=== PATIENT | male | born 1970 | race Caucasian/White ===

== ENCOUNTER 2017-09-11 11:25 | Inpatient (IN) ==
[2017-09-21] MEDS ORDERED: DEXTROSE 50% 25 GM/50 ML VIAL IV PRN (08:40)
[2017-09-21] MEDS ORDERED: GLUCAGON 1 MG VIAL IM PRN (08:40)
[2017-09-25 12:23] LABS: Basophils % 0.3 % (0.0-0.8); Eosinophils # 0.1 10*3/uL (0.0-0.87); Eosinophils % 1.7 % (0.00-10.9); Hematocrit 41.9 VOL% (42.0-52.0); Hemoglobin 14.6 GM/DL (14.0-18.0); Immature Granulocytes % 0.2 %; Immature Granulocytes Absolute 0.01 #; Lymphocytes # 1.7 10*3/uL (1.4-4.0); Lymphocytes % 29.2 % (21.2-54.2); Mean Corpuscular HGB Conc 34.8 GM/DL (32-36); Mean Corpuscular Hemoglobin 29 PG (27-34); Mean Corpuscular Volume 83.8 FL (87-102); Mean Platelet Volume 10.1 FL (9.6-12.0); Monocytes # 0.5 10*3/uL (0.11-0.8); Monocytes % 9.4 % (1.7-12.7); Neutrophils # 3.4 10*3/uL (1.4-7.4); Neutrophils % 59.2 % (38.7-73.9); Platelet Count 185 T/CUMM (130-400); Red Cell Distribution Width 14.7 % (9.3-17.3); White Blood Count 5.8 T/CUMM (4-12)
[2017-09-25 13:06] LABS: Calcium 9.2 MG/DL (8.5-10.1); Total Protein 7.2 G/DL (6.4-8.3)
[2017-09-25 14:16] LABS: Allen Test Positive; Pt O2 Delivery Device Room Air
[2017-09-25] MEDS: CHLORHEXIDINE 4% SOLN 118 ML BOTTLE TOP SCH ×2 (15:23→21:42)
[2017-09-25 15:48] LABS: ABG Base Excess -0.7 MMOL/L (-2.5-2.5); ABG HCO3 23.8 MMOL/L (20-26); ABG Oxygen Saturation 96.6 % (95-100); ABG PCO2 37.9 MM HG (35-48); ABG PH 7.404 (7.35-7.45); ABG PO2 84.7 MM HG (80-95); ABG TCO2 20.3 MMOL/L (23-27)
[2017-09-25] MEDS ORDERED: traZODone 50 MG TABLET PO SCH (21:00)
[2017-09-25] MEDS: CHLORHEXIDINE 0.12% ORAL RINSE 60 ML BOTTLE SWISH/SPIT SCH (21:39)
[2017-09-26] MEDS ORDERED: PAPAVERINE 60 MG/2 ML VIAL ONE (05:24)
[2017-09-26] MEDS ORDERED: VANCOMYCIN 1,000 MG VIAL ONE (05:25)
[2017-09-26] MEDS ORDERED: FAMOTIDINE 20 MG TABLET PO ONE ×2 (05:44→05:46)
[2017-09-26] MEDS ORDERED: LORazepam 1 MG TABLET PO ONE ×2 (05:44→05:47)
[2017-09-26] MEDS ORDERED: CEFUROXIME INJ 1,500 MG in SYRINGE 1 EACH IV ONE (06:00)
[2017-09-26] MEDS ORDERED: EPINEPHrine 1 MG/ML VIAL ONE ×2 (06:38→10:35)
[2017-09-26] MEDS ORDERED: LIDOCAINE 2% 5 ML VIAL ONE (06:38)
[2017-09-26] MEDS ORDERED: VECURONIUM 10 MG VIAL IV ONE ×2 (06:38→10:35)
[2017-09-26] MEDS ORDERED: ETOMIDATE 20 MG/10 ML VIAL IV ONE (06:38)
[2017-09-26] MEDS ORDERED: AMINOPHYLLINE 500 MG/20 ML VIAL IV ONE (06:38)
[2017-09-26] MEDS ORDERED: MINERAL OIL/PETROLATUM OPH OINT 3.5 GM TUBE ONE (06:38)
[2017-09-26] MEDS ORDERED: CALCIUM CHLORIDE 1,000 MG/10 ML VIAL IV ONE ×2 (06:38→10:34)
[2017-09-26] MEDS ORDERED: GLYCOPYRROLATE 0.4 MG/2 ML VIAL ONE ×2 (06:38→10:36)
[2017-09-26] MEDS: CHLORHEXIDINE 4% SOLN 118 ML BOTTLE TOP SCH ×2 (06:39→09:35)
[2017-09-26] MEDS: CHLORHEXIDINE 0.12% ORAL RINSE 60 ML BOTTLE SWISH/SPIT SCH ×3 (06:39→21:43)
[2017-09-26 07:36] LABS: ABG Base Excess 0.1 MMOL/L (-2.5-2.5); ABG HCO3 24.5 MMOL/L (20-26); ABG Oxygen Saturation 99.9 % (95-100); ABG PCO2 41.2 MM HG (35-48); ABG PH 7.392 (7.35-7.45); ABG TCO2 21.7 MMOL/L (23-27); Glucose Heart Surgery 107 MG/DL (74-106); Hematocrit Heart Surgery 41.6 PERCENT (42-52); Hemoglobin Heart Surgery 13.6 G/DL (14.0-18.0); Ionized Calcium Arterial 1.21 MMOL/L (1.21-1.46); PCO2 Patient Temp Arterial 41.2 MMHG; PH Patient Temp Arterial 7.392; Patient Temperature 37 CELCIUS; Potassium Heart/CVR 4.2 MMOL/L (3.5-5.1); Sodium Heart/CVR 137 MMOL/L (135-145)
[2017-09-26] MEDS ORDERED: NITROPRUSSIDE 50 MG/2 ML VIAL ONE (07:44)
[2017-09-26] MEDS ORDERED: PHENYLEPHRINE DRIP 40 MG/250 ML PREMIX IV ONE (07:44)
[2017-09-26] MEDS ORDERED: CALCIUM CHLORIDE 1,000 MG/10 ML SYRINGE IV ONE (07:45)
[2017-09-26] MEDS ORDERED: POTASSIUM CHLORIDE RIDER 100 ML IV ONE (07:45)
[2017-09-26 08:00] LABS: Apearance,Urine CLEAR (Clear); Bacteria,Urine Occasional /HPF (Few); Bilirubin,Urine Negative (Negative); Blood, Urine Negative (Negative); Glucose,Urine (UA) Negative (Negative); Ketones,Urine Negative (Negative); Mucus,Urine Occasional /LPF (Occasional); Nitrite,Urine Negative (Negative); Protein,Urine Negative; RBC,Urine 5 /HPF (0-4); Urine Color Yellow (Yellow); Urine Specific Gravity 1.012 (1.001-1.035); Urine Urobilinogen < 2.0 EU/DL (0.2-1.0)
[2017-09-26] MEDS ORDERED: traMADol 50 MG TABLET PO PRN (08:00)
[2017-09-26] MEDS ORDERED: GLUCAGON 1 MG VIAL IM PRN (08:00)
[2017-09-26] MEDS ORDERED: SODIUM CHLORIDE 0.9% 1,000 ML IV SCH (08:00)
[2017-09-26] MEDS ORDERED: NITROGLYCERIN SL 0.4 MG TABLET SL PRN (08:00)
[2017-09-26] MEDS ORDERED: DEXTROSE 50% 25 GM/50 ML VIAL IV PRN ×3 (08:00→10:37)
[2017-09-26 08:52] LABS: Hematocrit Heart Surgery 28.2 PERCENT (42-52); Hemoglobin Heart Surgery 9.1 G/DL (14.0-18.0); PCO2 Patient Temp Venous 43.2 MM HG; PH Patient Temp Venous 7.386; PO2 Patient Temp Venous 50.1 MM HG; Potassium Heart/CVR 5.4 MMOL/L (3.5-5.1); VBG Base Excess 0.7 MEQ/L (0-4); VBG HCO3 24.9 MEQ/L (24-28); VBG Oxygen Saturation 83.8 %; VBG PCO2 43.2 MMHG (41-51); VBG PH 7.386; VBG PO2 50.1 MMHG (17-40)
[2017-09-26] MEDS ORDERED: THROMBIN TOPICAL (RECOMBINANT) 5,000 UNIT VIAL TOP ONE (09:17)
[2017-09-26 09:44] LABS: ABG Base Excess -1.2 MMOL/L (-2.5-2.5); ABG HCO3 23.3 MMOL/L (20-26); ABG Oxygen Saturation 93.2 % (95-100); ABG PCO2 40.1 MM HG (35-48); ABG PO2 69.1 MM HG (80-95); ABG TCO2 21.2 MMOL/L (23-27); Glucose Heart Surgery 178 MG/DL (74-106); Hematocrit Heart Surgery 35.8 PERCENT (42-52); Hemoglobin Heart Surgery 11.6 G/DL (14.0-18.0); Ionized Calcium Arterial 1.28 MMOL/L (1.21-1.46); PCO2 Patient Temp Arterial 40.1 MMHG; PO2 Patient Temp Arterial 69.1 MM HG; Patient Temperature 37 CELCIUS; Potassium Heart/CVR 4.7 MMOL/L (3.5-5.1); Sodium Heart/CVR 135 MMOL/L (135-145)
[2017-09-26] MEDS: SODIUM CHLORIDE 0.45% 1,000 ML IV SCH ×2 (10:20)
[2017-09-26] MEDS ORDERED: DEXTROSE 5% KCL 20 MEQ 20 MEQ/1,000 ML BAG IV ONE (10:26)
[2017-09-26] MEDS ORDERED: ALBUMIN 25% 25 GM/100 ML VIAL IV ONE (10:26)
[2017-09-26] MEDS ORDERED: SODIUM BICARBONATE 50 MEQ/50 ML SYRINGE IV ONE (10:26)
[2017-09-26] MEDS ORDERED: PROTAMINE SULFATE 250 MG/25 ML VIAL IV ONE (10:27)
[2017-09-26] MEDS ORDERED: methylPREDNISolone SOD SUC 1,000 MG/8 ML VIAL ONE (10:27)
[2017-09-26] MEDS ORDERED: HEPARIN 10,000 UNIT/10 ML VIAL ONE (10:27)
[2017-09-26] MEDS ORDERED: MAGNESIUM SULFATE 1 GM/2 ML VIAL ONE (10:27)
[2017-09-26] MEDS ORDERED: MANNITOL 12.5 GM/50 ML VIAL IV ONE (10:27)
[2017-09-26] MEDS ORDERED: FUROSEMIDE 20 MG/2 ML VIAL ONE (10:27)
[2017-09-26] MEDS ORDERED: SEVOFLURANE 1 UNIT/15 MINUTE INH ONE (10:34)
[2017-09-26] MEDS ORDERED: SUFentanil 50 MCG/ML AMP ONE (10:34)
[2017-09-26] MEDS ORDERED: MIDAZOLAM 10 MG/2 ML VIAL ONE (10:35)
[2017-09-26] MEDS ORDERED: SUFentanil 250 MCG/5 ML AMP ONE (10:35)
[2017-09-26] MEDS ORDERED: ETOMIDATE 40 MG/20 ML VIAL IV ONE (10:36)
[2017-09-26] MEDS ORDERED: LACTATED RINGERS 3,000 ML IV ONE (10:36)
[2017-09-26] MEDS ORDERED: SODIUM CHLORIDE 0.9% 1,000 ML IV ONE (10:36)
[2017-09-26] MEDS ORDERED: SODIUM CHLORIDE 0.9% 500 ML IV ONE (10:36)
[2017-09-26] MEDS ORDERED: AMINOCAPROIC ACID 5,000 MG/20 ML VIAL IV ONE (10:36)
[2017-09-26] MEDS ORDERED: NITROPRUSSIDE 100 MG in DEXTROSE 5% 250 ML IV PRN (10:37)
[2017-09-26] MEDS ORDERED: LACTATED RINGERS 250 ML IV PRN (10:37)
[2017-09-26] MEDS ORDERED: CALCIUM CHLORIDE 1,000 MG/10 ML SYRINGE IV PRN (10:37)
[2017-09-26] MEDS ORDERED: MAGNESIUM SULF RIDER 2 GM in PREMIX 1 EACH IV PRN (10:37)
[2017-09-26] MEDS ORDERED: PHENYLEPHRINE DRIP 40 MG/250 ML PREMIX IV PRN (10:37)
[2017-09-26] MEDS ORDERED: INSULIN REGULAR 100 UNIT/ML IV PRN (10:37)
[2017-09-26] MEDS ORDERED: MAGNESIUM SULF RIDER 4 GM in PREMIX 1 EACH IV PRN (10:37)
[2017-09-26] MEDS ORDERED: MIDAZOLAM 2 MG/2 ML VIAL IV PRN (10:37)
[2017-09-26] MEDS ORDERED: ONDANSETRON 4 MG/2 ML VIAL IV PRN (10:37)
[2017-09-26] MEDS ORDERED: MIDAZOLAM 10 MG/2 ML VIAL IV PRN (10:37)
[2017-09-26] MEDS ORDERED: INSULIN REGULAR 100 UNIT/ML IV ONE (10:37)
[2017-09-26] MEDS ORDERED: ACETAMINOPHEN 650 MG SUPP RECTAL PRN (10:37)
[2017-09-26] MEDS ORDERED: VECURONIUM 10 MG VIAL IV PRN ×2 (10:37)
[2017-09-26] MEDS ORDERED: POTASSIUM CHLORIDE RIDER 10 MEQ in PREMIX 1 EACH IV PRN (10:37)
[2017-09-26 10:46] LABS: ABG Base Excess 0.5 MMOL/L (-2.5-2.5); ABG HCO3 24.8 MMOL/L (20-26); ABG PCO2 35.2 MM HG (35-48); ABG PH 7.443 (7.35-7.45); ABG TCO2 21.3 MMOL/L (23-27); Glucose Heart Surgery 151 MG/DL (74-106); Hematocrit Heart Surgery 36.4 PERCENT (42-52); Hemoglobin Heart Surgery 11.8 G/DL (14.0-18.0); Potassium Heart/CVR 4.2 MMOL/L (3.5-5.1)
[2017-09-26] MEDS ORDERED: PROTAMINE SULFATE 50 MG/5 ML VIAL IV ONE (10:49)
[2017-09-26 10:51] LABS: Basophils % 0.2 % (0.0-0.8); Eosinophils % 0.7 % (0.00-10.9); Hematocrit 34.1 VOL% (42.0-52.0); Immature Granulocytes % 0.4 %; Immature Granulocytes Absolute 0.02 #; Lymphocytes % 17.4 % (21.2-54.2); Mean Corpuscular Hemoglobin 29 PG (27-34); Mean Corpuscular Volume 84.8 FL (87-102); Mean Platelet Volume 9.9 FL (9.6-12.0); Monocytes # 0.5 10*3/uL (0.11-0.8); Monocytes % 8.8 % (1.7-12.7); Neutrophils # 4.1 10*3/uL (1.4-7.4); Neutrophils % 72.5 % (38.7-73.9); Red Blood Count 4.02 MC/CUMM (3.8-5.5); Red Cell Distribution Width 14.4 % (9.3-17.3); White Blood Count 5.6 T/CUMM (4-12)
[2017-09-26 10:58] LABS: Hemoglobin 11.6 GM/DL (14.0-18.0); Platelet Count 213 T/CUMM (130-400)
[2017-09-26 11:00] LABS: INR 1.1
[2017-09-26] MEDS: POTASSIUM CHLORIDE RIDER 20 MEQ in PREMIX 1 EACH IV PRN ×4 (11:00→22:33)
[2017-09-26] MEDS: HYDROmorphone 2 MG/1 ML VIAL IV SCH ×2 (11:06→12:53)
[2017-09-26] MEDS: KETOROLAC 30 MG/1 ML VIAL IV SCH ×3 (11:08→22:29)
[2017-09-26 11:24] LABS: Albumin 3.5 G/DL (3.4-5.0); Calcium 8.3 MG/DL (8.5-10.1); Magnesium 2.4 MG/DL (1.8-2.4); Osmolality,Calculated 277.7 MOS/KG (273-304); Potassium 4.2 MMOL/L (3.5-5.1); Total Protein 5.8 G/DL (6.4-8.3)
[2017-09-26 11:56] LABS: ABG Base Excess 0.8 MMOL/L (-2.5-2.5); ABG HCO3 23.6 MMOL/L (20-26); ABG Oxygen Saturation 97.9 % (95-100); ABG PCO2 32.2 MM HG (35-48); ABG PH 7.483 (7.35-7.45); ABG PO2 109.7 MM HG (80-95); ABG TCO2 24.6 MMOL/L (23-27); Glucose Heart Surgery 131 MG/DL (74-106); Hemoglobin Heart Surgery 12.4 G/DL (14.0-18.0); Potassium Heart/CVR 4.5 MMOL/L (3.5-5.1)
[2017-09-26 12:01] LABS: CKMB % 2.8 %
[2017-09-26 12:03] LABS: Troponin I Only 1.26 NG/ML (0.00-0.045)
[2017-09-26 13:15] LABS: ABG Base Excess -0.3 MMOL/L (-2.5-2.5); ABG HCO3 24.2 MMOL/L (20-26); ABG Oxygen Saturation 97.6 % (95-100); ABG PCO2 39.7 MM HG (35-48); ABG PH 7.397 (7.35-7.45); ABG TCO2 21.5 MMOL/L (23-27); Glucose Heart Surgery 154 MG/DL (74-106); Hematocrit Heart Surgery 38.6 PERCENT (42-52); Hemoglobin Heart Surgery 12.5 G/DL (14.0-18.0); Potassium Heart/CVR 4.2 MMOL/L (3.5-5.1)
[2017-09-26] MEDS: ALBUMIN 5% 12.5 GM in PREMIX 1 EACH IV PRN ×4 (13:37→14:40)
[2017-09-26] MEDS: INSULIN REGULAR DRIP 100 ML IV SCH (14:10)
[2017-09-26 15:07] LABS: ABG Base Excess -2.6 MMOL/L (-2.5-2.5); ABG HCO3 22.2 MMOL/L (20-26); ABG Oxygen Saturation 96.8 % (95-100); ABG PH 7.301 (7.35-7.45); ABG PO2 98.9 MM HG (80-95); ABG TCO2 21.9 MMOL/L (23-27); Glucose Heart Surgery 178 MG/DL (74-106); Hematocrit Heart Surgery 34.5 PERCENT (42-52); Hemoglobin Heart Surgery 11.2 G/DL (14.0-18.0); Potassium Heart/CVR 4.3 MMOL/L (3.5-5.1)
[2017-09-26] MEDS ORDERED: FUROSEMIDE 40 MG/4 ML VIAL IV ONE (16:17)
[2017-09-26 17:17] LABS: ABG Base Excess -2.4 MMOL/L (-2.5-2.5); ABG HCO3 22.3 MMOL/L (20-26); ABG Oxygen Saturation 96.2 % (95-100); ABG PCO2 50.9 MM HG (35-48); ABG PH 7.295 (7.35-7.45); ABG PO2 92.6 MM HG (80-95); Glucose Heart Surgery 176 MG/DL (74-106); Hematocrit Heart Surgery 39.6 PERCENT (42-52); Hemoglobin Heart Surgery 12.9 G/DL (14.0-18.0); Potassium Heart/CVR 4.5 MMOL/L (3.5-5.1)
[2017-09-26] MEDS: CEFUROXIME INJ 1,500 MG in SYRINGE 1 EACH IV SCH (18:08)
[2017-09-26] MEDS ORDERED: FUROSEMIDE 40 MG/4 ML VIAL IV PRN (18:25)
[2017-09-26 20:05] LABS: ABG Base Excess -1.8 MMOL/L (-2.5-2.5); ABG HCO3 22.9 MMOL/L (20-26); ABG Oxygen Saturation 97.7 % (95-100); ABG PCO2 44.4 MM HG (35-48); ABG PH 7.341 (7.35-7.45); ABG TCO2 21.8 MMOL/L (23-27); Glucose Heart Surgery 204 MG/DL (74-106); Hematocrit Heart Surgery 33.2 PERCENT (42-52); Hemoglobin Heart Surgery 10.8 G/DL (14.0-18.0); Potassium Heart/CVR 4.5 MMOL/L (3.5-5.1)
[2017-09-26 20:35] LABS: CKMB % 1.8 %
[2017-09-26 20:39] LABS: Troponin I Only 3.49 NG/ML (0.00-0.045)
[2017-09-26] MEDS ORDERED: ROSUVASTATIN 20 MG TABLET PO SCH (21:00)
[2017-09-26] MEDS ORDERED: CARVEDILOL 3.125 MG TABLET PO SCH (21:00)
[2017-09-26] MEDS ORDERED: ASPIRIN EC 81 MG TABLET PO SCH (21:00)
[2017-09-26] MEDS ORDERED: traZODone 50 MG TABLET PO SCH (21:00)
[2017-09-26] MEDS ORDERED: RANOLAZINE 500 MG TABLET PO SCH (21:00)
[2017-09-26] MEDS ORDERED: PREGABALIN 100 MG CAPSULE PO SCH (21:00)
[2017-09-26 21:08] LABS: ABG Base Excess -1.9 MMOL/L (-2.5-2.5); ABG HCO3 22.8 MMOL/L (20-26); ABG Oxygen Saturation 97.1 % (95-100); ABG PCO2 44.6 MM HG (35-48); ABG PH 7.338 (7.35-7.45); ABG PO2 96.3 MM HG (80-95); ABG TCO2 21.7 MMOL/L (23-27); Glucose Heart Surgery 192 MG/DL (74-106); Hematocrit Heart Surgery 33.9 PERCENT (42-52); Potassium Heart/CVR 4.4 MMOL/L (3.5-5.1)
[2017-09-26 22:08] LABS: ABG Base Excess -2.2 MMOL/L (-2.5-2.5); ABG HCO3 22.6 MMOL/L (20-26); ABG Oxygen Saturation 95.5 % (95-100); ABG PCO2 44.9 MM HG (35-48); ABG PH 7.333 (7.35-7.45); ABG PO2 83.3 MM HG (80-95); ABG TCO2 21.6 MMOL/L (23-27); Glucose Heart Surgery 184 MG/DL (74-106); Hematocrit Heart Surgery 33.3 PERCENT (42-52); Hemoglobin Heart Surgery 10.8 G/DL (14.0-18.0); Potassium Heart/CVR 4.3 MMOL/L (3.5-5.1)
[2017-09-27] MEDS: HYDROmorphone 2 MG/1 ML VIAL IV PRN ×3 (01:27→18:42)
[2017-09-27 04:14] LABS: ABG HCO3 24.3 MMOL/L (20-26); ABG Oxygen Saturation 89.1 % (95-100); ABG PCO2 44.5 MM HG (35-48); ABG PH 7.366 (7.35-7.45); ABG PO2 59.3 MM HG (80-95); ABG TCO2 23.3 MMOL/L (23-27); Glucose Heart Surgery 151 MG/DL (74-106); Hematocrit Heart Surgery 31.4 PERCENT (42-52); Hemoglobin Heart Surgery 10.2 G/DL (14.0-18.0); Potassium Heart/CVR 4.3 MMOL/L (3.5-5.1)
[2017-09-27 04:15] LABS: Hemoglobin 10.1 GM/DL (14.0-18.0); Immature Granulocytes % 0.4 %; Immature Granulocytes Absolute 0.05 #; Lymphocytes # 0.4 10*3/uL (1.4-4.0); Lymphocytes % 3.2 % (21.2-54.2); Mean Corpuscular HGB Conc 32.6 GM/DL (32-36); Mean Corpuscular Hemoglobin 29 PG (27-34); Mean Corpuscular Volume 87.6 FL (87-102); Mean Platelet Volume 10.1 FL (9.6-12.0); Monocytes # 0.6 10*3/uL (0.11-0.8); Monocytes % 5.2 % (1.7-12.7); Neutrophils # 11.2 10*3/uL (1.4-7.4); Neutrophils % 91.2 % (38.7-73.9); Platelet Count 192 T/CUMM (130-400); Red Blood Count 3.54 MC/CUMM (3.8-5.5); Red Cell Distribution Width 14.7 % (9.3-17.3); White Blood Count 12.2 T/CUMM (4-12)
[2017-09-27 04:34] LABS: ABG Base Excess 0.2 MMOL/L (-2.5-2.5); ABG HCO3 24.5 MMOL/L (20-26); ABG Oxygen Saturation 93.5 % (95-100); ABG PCO2 45.6 MM HG (35-48); ABG PH 7.362 (7.35-7.45); ABG PO2 71.2 MM HG (80-95); ABG TCO2 23.5 MMOL/L (23-27); Glucose Heart Surgery 151 MG/DL (74-106); Hematocrit Heart Surgery 32.1 PERCENT (42-52); Hemoglobin Heart Surgery 10.4 G/DL (14.0-18.0); Potassium Heart/CVR 4.4 MMOL/L (3.5-5.1)
[2017-09-27] MEDS: POTASSIUM CHLORIDE RIDER 20 MEQ in PREMIX 1 EACH IV PRN ×2 (04:41→08:55)
[2017-09-27] MEDS: KETOROLAC 30 MG/1 ML VIAL IV SCH ×4 (04:45→21:38)
[2017-09-27 04:51] LABS: Hypochromasia 1+; Lymphocytes 2 % (20-55); Ovalocytes Slight; Platelet Estimate Normal; Segmented Neutrophils 95 % (50-85); Total Cells Counted 100
[2017-09-27 04:52] LABS: CKMB % 1.3 %; Giant Platelets Few
[2017-09-27 04:57] LABS: Troponin I Only 5.66 NG/ML (0.00-0.045)
[2017-09-27 05:03] LABS: Albumin 4.5 G/DL (3.4-5.0); Bilirubin,Direct 0.15 MG/DL (0.0-0.20); Bilirubin,Total 0.5 MG/DL (0.2-1.0); Calcium 8.5 MG/DL (8.5-10.1); Osmolality,Calculated 287.3 MOS/KG (273-304); Potassium 4.4 MMOL/L (3.5-5.1); Total Protein 6.7 G/DL (6.4-8.3)
[2017-09-27] MEDS: CEFUROXIME INJ 1,500 MG in SYRINGE 1 EACH IV SCH (06:24)
[2017-09-27] MEDS: INSULIN REGULAR 100 UNIT/ML SUBCUT SCH ×2 (08:00→12:00)
[2017-09-27 08:05] LABS: ABG Base Excess 0.5 MMOL/L (-2.5-2.5); ABG HCO3 25.5 MMOL/L (20-26); ABG Oxygen Saturation 92.2 % (95-100); ABG PCO2 42.4 MM HG (35-48); ABG PH 7.397 (7.35-7.45); ABG TCO2 26.8 MMOL/L (23-27); Glucose Heart Surgery 135 MG/DL (74-106); Hemoglobin Heart Surgery 10.4 G/DL (14.0-18.0); Potassium Heart/CVR 4.3 MMOL/L (3.5-5.1)
[2017-09-27] MEDS: CHLORHEXIDINE 0.12% ORAL RINSE 60 ML BOTTLE SWISH/SPIT SCH (09:00)
[2017-09-27] MEDS: INSULIN REGULAR DRIP 100 ML IV SCH (10:59)
[2017-09-27] MEDS: SODIUM CHLORIDE 0.45% 1,000 ML IV SCH ×2 (10:59)
[2017-09-27 11:26] LABS: Troponin I Only 5.16 NG/ML (0.00-0.045)
[2017-09-27] MEDS ORDERED: MIDAZOLAM 2 MG/2 ML VIAL IV ONE (12:20)
[2017-09-27] MEDS ORDERED: traMADol 50 MG TABLET PO PRN (12:44)
[2017-09-27] MEDS ORDERED: ALUMINUM/MAGNES/SIMETH MAX STR 30 ML UDCUP PO PRN (12:53)
[2017-09-27] MEDS ORDERED: ONDANSETRON 4 MG/2 ML VIAL IV PRN (12:53)
[2017-09-27] MEDS ORDERED: ZALEPLON 5 MG CAPSULE PO PRN (12:53)
[2017-09-27] MEDS ORDERED: MAGNESIUM SULF RIDER 4 GM in PREMIX 1 EACH IV PRN (12:53)
[2017-09-27] MEDS ORDERED: DEXTROSE 50% 25 GM/50 ML VIAL IV PRN ×2 (12:53)
[2017-09-27] MEDS ORDERED: POTASSIUM CHLORIDE 20 MEQ TABLET PO PRN (12:53)
[2017-09-27] MEDS ORDERED: ACETAMINOPHEN 325 MG TABLET PO PRN (12:53)
[2017-09-27] MEDS ORDERED: MAGNESIUM SULF RIDER 2 GM in PREMIX 1 EACH IV PRN (12:53)
[2017-09-27] MEDS ORDERED: GLUCAGON 1 MG VIAL IM PRN ×2 (12:53)
[2017-09-27] MEDS ORDERED: MAGNESIUM HYDROXIDE SUSP 30 ML UDCUP PO PRN (12:53)
[2017-09-27] MEDS ORDERED: SODIUM CHLOR 0.45% KCL 20 MEQ 20 MEQ/1,000 ML BAG IV SCH (13:00)
[2017-09-27] MEDS: RANOLAZINE 500 MG TABLET PO SCH (21:36)
[2017-09-27] MEDS: ROSUVASTATIN 20 MG TABLET PO SCH (21:36)
[2017-09-27] MEDS: CARVEDILOL 3.125 MG TABLET PO SCH (21:37)
[2017-09-27] MEDS: PREGABALIN 100 MG CAPSULE PO SCH (21:37)
[2017-09-27] MEDS: traZODone 50 MG TABLET PO SCH (21:40)
[2017-09-28 05:05] LABS: Basophils % 0.1 % (0.0-0.8); Hematocrit 28.3 VOL% (42.0-52.0); Hemoglobin 9.2 GM/DL (14.0-18.0); Immature Granulocytes % 0.9 %; Immature Granulocytes Absolute 0.12 #; Lymphocytes # 0.6 10*3/uL (1.4-4.0); Lymphocytes % 4.4 % (21.2-54.2); Mean Corpuscular HGB Conc 32.5 GM/DL (32-36); Mean Corpuscular Hemoglobin 29 PG (27-34); Mean Corpuscular Volume 89.3 FL (87-102); Mean Platelet Volume 10.1 FL (9.6-12.0); Monocytes # 1.3 10*3/uL (0.11-0.8); Monocytes % 9.3 % (1.7-12.7); Neutrophils # 11.5 10*3/uL (1.4-7.4); Neutrophils % 85.3 % (38.7-73.9); Platelet Count 147 T/CUMM (130-400); Red Blood Count 3.17 MC/CUMM (3.8-5.5); White Blood Count 13.5 T/CUMM (4-12)
[2017-09-28] MEDS: CHLORHEXIDINE 0.12% ORAL RINSE 60 ML BOTTLE SWISH/SPIT SCH ×3 (05:05→21:25)
[2017-09-28] MEDS: KETOROLAC 30 MG/1 ML VIAL IV SCH ×4 (05:25→21:25)
[2017-09-28 05:38] LABS: Giant Platelets Few; Hypochromasia 1+; Lymphocytes 7 % (20-55); Platelet Estimate Normal; Segmented Neutrophils 89 % (50-85); Total Cells Counted 100
[2017-09-28 05:44] LABS: Alanine Aminotransferase 26 U/L (16-61); Albumin 3.8 G/DL (3.4-5.0); Alkaline Phosphatase 40 U/L (45-117); Aspartate Amino Transferase 24 U/L (0-37); Bilirubin,Indirect 0.6 MG/DL (0.0-1.0); Blood Urea Nitrogen 25 MG/DL (7-18); Calcium 8.4 MG/DL (8.5-10.1); Glucose 127 MG/DL (74-106); Magnesium 2.4 MG/DL (1.8-2.4); Osmolality,Calculated 278.8 MOS/KG (273-304); Potassium 4.8 MMOL/L (3.5-5.1); Sodium 137 MMOL/L (136-145); Total Protein 6.4 G/DL (6.4-8.3)
[2017-09-28] MEDS ORDERED: FUROSEMIDE 40 MG/4 ML VIAL IV ONE (06:00)
[2017-09-28] MEDS: CARVEDILOL 3.125 MG TABLET PO SCH ×2 (08:38→21:25)
[2017-09-28] MEDS: ASPIRIN EC 325 MG TABLET PO SCH (08:38)
[2017-09-28] MEDS: CLOPIDOGREL 75 MG TABLET PO SCH (08:38)
[2017-09-28] MEDS: PANTOPRAZOLE 40 MG TABLET PO SCH (08:38)
[2017-09-28] MEDS: DOCUSATE SODIUM 100 MG CAPSULE PO SCH (08:38)
[2017-09-28] MEDS: RANOLAZINE 500 MG TABLET PO SCH (08:38)
[2017-09-28] MEDS: FERROUS SULFATE 325 MG TABLET PO SCH (08:38)
[2017-09-28] MEDS: PREGABALIN 100 MG CAPSULE PO SCH (21:25)
[2017-09-28] MEDS: ROSUVASTATIN 20 MG TABLET PO SCH (21:25)
[2017-09-28] MEDS: traZODone 50 MG TABLET PO SCH (21:25)
[2017-09-29 03:06] LABS: Eosinophils % 0.1 % (0.00-10.9); Hematocrit 26.5 VOL% (42.0-52.0); Hemoglobin 8.5 GM/DL (14.0-18.0); Immature Granulocytes % 0.6 %; Immature Granulocytes Absolute 0.05 #; Lymphocytes # 1.2 10*3/uL (1.4-4.0); Mean Corpuscular HGB Conc 32.1 GM/DL (32-36); Mean Corpuscular Hemoglobin 29 PG (27-34); Mean Corpuscular Volume 89.2 FL (87-102); Mean Platelet Volume 10.2 FL (9.6-12.0); Monocytes # 1.1 10*3/uL (0.11-0.8); Monocytes % 13.3 % (1.7-12.7); Neutrophils # 5.8 10*3/uL (1.4-7.4); Platelet Count 136 T/CUMM (130-400); Red Blood Count 2.97 MC/CUMM (3.8-5.5); Red Cell Distribution Width 15.2 % (9.3-17.3); White Blood Count 8.2 T/CUMM (4-12)
[2017-09-29 03:57] LABS: Alanine Aminotransferase 23 U/L (16-61); Albumin 3.2 G/DL (3.4-5.0); Alkaline Phosphatase 38 U/L (45-117); Aspartate Amino Transferase 13 U/L (0-37); Bilirubin,Indirect 0.3 MG/DL (0.0-1.0); Blood Urea Nitrogen 26 MG/DL (7-18); Calcium 7.8 MG/DL (8.5-10.1); Glucose 115 MG/DL (74-106); Magnesium 2.7 MG/DL (1.8-2.4); Osmolality,Calculated 282.5 MOS/KG (273-304); Potassium 4.5 MMOL/L (3.5-5.1); Sodium 139 MMOL/L (136-145); Total Protein 5.5 G/DL (6.4-8.3)
[2017-09-29] MEDS: KETOROLAC 30 MG/1 ML VIAL IV SCH ×2 (05:14→10:50)
[2017-09-29 07:59] VITALS: BP 108/55
[2017-09-29] MEDS: CARVEDILOL 3.125 MG TABLET PO SCH (08:46)
[2017-09-29] MEDS: PANTOPRAZOLE 40 MG TABLET PO SCH (08:46)
[2017-09-29] MEDS: ASPIRIN EC 325 MG TABLET PO SCH (08:46)
[2017-09-29] MEDS: DOCUSATE SODIUM 100 MG CAPSULE PO SCH (08:46)
[2017-09-29] MEDS: FERROUS SULFATE 325 MG TABLET PO SCH (08:46)
[2017-09-29] MEDS: CLOPIDOGREL 75 MG TABLET PO SCH (08:46)
[2017-09-29] MEDS: CHLORHEXIDINE 0.12% ORAL RINSE 60 ML BOTTLE SWISH/SPIT SCH (08:49)
== END 2017-09-29 11:10 | disposition home health service (06) | DRG 236 ==
LOC: N.ADMINP 09-25 11:34 → N.TELES 09-25 11:38 → N.CVR 09-26 07:02 → N.TELES 09-27 15:40